=== PATIENT | female | born 1995 | race Caucasian/White ===

== ENCOUNTER 2021-09-20 08:45 | Emergency (ER) | payer BC ==
[2021-09-20] MEDS ORDERED: AUGMENTIN 875-1 EACH PO (11:49)
== END 2021-09-20 11:58 | disposition home or self-care (01) ==
LOC: ER1 08:45
DX: J02.9 Acute pharyngitis, unspecified (principal)
CPT/HCPCS: 87081; 87880; 96372; 99283; J1100

== ENCOUNTER 2021-09-21 17:23 | Emergency (ER) | payer BC ==
[~2021-09-21 17:23] MED LIST: AUGMENTIN 875-1 EACH PO
== END 2021-09-21 19:30 | disposition left against medical advice (07) ==
LOC: ER1 17:23
DX: Z53.21 Procedure and treatment not carried out due to patient leaving prior to being seen by health care provider (principal)